=== PATIENT | male | born 1960 | race Caucasian/White ===

== ENCOUNTER 2019-04-29 04:05 | Emergency (ER) | payer OTHER ==
[2019-04-29] MEDS: NICARDipine HCL 30 MG CAPSULE PO (05:11)
[2019-04-29] MEDS: HYDROCODONE/APAP (10/325) TAB PO (05:11)
== END 2019-04-29 07:52 | disposition home or self-care (01) ==
LOC: FTE 04:05 → E/R 07:52
DX: M54.2 Cervicalgia (principal); M54.42 Lumbago with sciatica, left side; M54.41 Lumbago with sciatica, right side; M25.512 Pain in left shoulder; I10 Essential (primary) hypertension; Z87.891 Personal history of nicotine dependence; Z59.0 Homelessness
CPT/HCPCS: 93005; 99283-25